=== PATIENT | female | born 1950 | race Caucasian/White ===

== ENCOUNTER → 2020-02-23 | Outpatient (CLI) | payer MEDICARE ==
[~2020-02-23] MED LIST: CARVEDILOL12.5 MG PO; CHILDREN'S ASPI81 M1 PO; CLOPIDOGREL75 MG PO; LEVO-T75 MCG PO; LEXAPRO 10 MG T10 M1 PO; LIPITOR80 MG PO; LOSARTAN POTAS100 MG PO; MELOXICAM7.5 MG PO; METFORMIN HCL500 M3 PO; NITROSTAT0.4 M1 SUBLING; NORVASC5 M1 PO; PANTOPRAZOLE SO40 MG PO
--- NOTE | 2020-03-04 09:02 | PAINCON ---
[address] [address] PAIN MANAGEMENT CONSULTATION Name: AMANDA ESTRADA Room: [facility].#: [id number] Admission: 02/23/20 Attend Phys: Chi Mehta MD Discharge: Date of : 48 Report #: [id number] THIS REPORT FOR: //name// cc: Melanie Velasquez MD, Elizabeth MD ~ THIS REPORT FOR: //name// CC: Lola Mehta DATE OF SERVICE: 02/23/2020 CHIEF COMPLAINT: Pain in both knees. HISTORY: The patient is a 69-year-old female who has been referred to the pain clinic for evaluation. She has pain and discomfort in her right knee, which is quite problematic. She states that she "blew out her ACL about 30 years ago." She also has problems with [id number]-[id number] discomfort. She feels that the surrounding muscles are problematic. Walking exacerbates her pain. Changes in weather is problematic. She notes that there is some swelling in the affected knee. She is an active life. She takes care of her , who is at home and who has dementia. She has seen orthopedic surgery in about 17 years ago. At this juncture, she declines surgery. She would like to have her right knee injected. She sometimes notes that her knee locks up. She is taking Plavix. ALLERGIES: No known drug allergies. CURRENT MEDICATIONS: Levothyroxine 75 mcg, aspirin 81 mg, losartan 100 mg, carvedilol 6.25 mg, Nitrostat 0.4 mg p.r.n. chest pain, Meloxicam 7.5 mg a.m. and p.m., pantoprazole 40 mg a.m. and p.m., amlodipine 5 mg, escitalopram 10 mg, Lipitor 80 mg, clopidogrel, and metformin 500 mg 2 times daily. PAST MEDICAL HISTORY: Diabetes, hypertension, heart disease, thyroid disease, joint disease, history of ulcers. PAST SURGICAL HISTORY: Tubal ligation in 1974, 2 heart stents 2018. 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 REVIEW OF SYSTEMS: Right eye blurred vision, ringing in the ears, heart trouble, swelling of feet and ankles, joint pain, joint stiffness, weakness of muscles and joints, muscle pain and cramps, back pain, difficulty walking, varicose veins, depression, and insomnia. LABORATORY DATA: No new laboratory values are available [place] [address] PAIN MANAGEMENT CONSULTATION Name: AMANDA ESTRADA Room: [facility]#: [id number] Admission: 02/23/20 Attend Phys: Chi Mehta MD Discharge: Date of : 48 Report #: [id number] interview. PAIN CLINIC ASSESSMENT AND PQRS: 1. Height 5 feet 3 inches, weight 223 pounds, BMI is 39.7. 2. The patient has osteoarthritic changes involving her knees, left side more problematic. 3. Vital Signs: Blood pressure 136/73, heart rate 80, respiratory rate 16, room air saturation is 92%, and temperature 97.2. 4. Pain intensity 10. 5. Fall history: The patient has not fallen in the last 3 months. 6. Blood thinner. The patient is on Plavix. 7. Hypertension. The patient is being treated for hypertension. 8. Opioids greater than 6 weeks. The patient is not on an opioid regimen. 9. Risk assessment tool, reviewed. 10. Recreational drug use. The patient denies. 11. Tobacco: The patient denies. 12. Alcohol. The patient denies use of alcoholic beverages. PHYSICAL EXAMINATION: GENERAL: The patient is a well-developed, well-nourished white female. Appears her stated age. She is alert and oriented x 3. Her affect is appropriate. Speech is fluent. HEENT: Normocephalic, atraumatic. Extraocular eye muscles intact. Sclerae nonicteric. Mucous membranes are moist. NECK: Without adenopathy or JVD. HEART: Regular rate. ABDOMEN: Nontender. LUNGS: Generally clear to auscultation. MUSCULOSKELETAL: Upper extremity muscle strength judged to be 5-/5 for the major muscle groups in the upper extremity. Lower extremity muscle strength judged to be 5-/5 for the major muscle groups in the lower extremity. The patient has complaints of pain and discomfort involving both of her left and the right knee. She has complaints of [id number] pain involving the left knee. The patient without significant scoliosis, kyphosis or lordosis. The patient walks with a stiff leg and an antalgic gait. IMPRESSION: 1. Osteoarthritic changes involving the left and right knee, left more problematic. 2. Diabetes. 3. Hypertension. 4. Heart disease. 5. Thyroid disease. 6. Joint disease. 7. History of ulcers. [facility] [address] [facility] [place] [address] PAIN MANAGEMENT CONSULTATION Name: AMANDA ESTRADA Room: [facility] Macario#: [id number] Admission: 02/23/20 Attend Phys: Chi Mehta MD Discharge: Date of : 48 Report #: [id number] RECOMMENDATIONS: We discussed treatment options with the patient. Risks and benefits of injections with steroid in the knee have been discussed. The patient will return to the Pain Clinic in the future, at which time we will proceed with an injection with local anesthetic and steroid into the left knee. The patient states that the ACL is no longer present in the left knee. We would like to thank you for letting us participate in her care. We hope she continues to improve. <ELECTRONICALLY SIGNED> By: Chi Mehta MD 03/04/20 [id number]. Garett Mehta MD /nt
== END ==
LOC: M.PC 11:50
PROVIDERS: ATTEND Anesthesiology Pain Medicine
DX: M17.0 Bilateral primary osteoarthritis of knee (principal); E11.9 Type 2 diabetes mellitus without complications; I10 Essential (primary) hypertension; E07.9 Disorder of thyroid, unspecified; I51.9 Heart disease, unspecified; M25.50 Pain in unspecified joint; Z87.11 Personal history of peptic ulcer disease; Z79.899 Other long term (current) drug therapy